=== PATIENT | female | born 1990 | race Caucasian/White ===

== ENCOUNTER 2016-11-19 20:01 | Emergency (ER) | payer OTHER ==
--- NOTE | 2016-11-20 08:00 | RAD ---
CHEST - 2 VIEWS COMPARISON: None. HISTORY: Trouble breathing for several days. 10 weeks . FINDINGS: Views: Frontal and lateral chest using double shielding on the abdomen. Lungs: Normal Heart and vessels: Normal Trachea and bronchi: Normal Mediastinum and zhang: Normal Costophrenic sulci: Normal Chest wall and bones: Normal. Upper abdomen: Cholecystectomy clips. IMPRESSION: Negative 2 view chest.
== END 2016-11-19 22:08 | disposition home or self-care (01) ==
LOC: ED 20:01
DX: J06.9 Acute upper respiratory infection, unspecified (principal)